=== PATIENT | female | born 1990 | race Caucasian/White ===

== ENCOUNTER 2017-07-11 17:14 | Inpatient (IN) | payer MEDICAID ==
[~2017-07-11] VITALS: Ht 160 cm; Wt 69.9 kg
[2017-07-11 17:25] VITALS: BP 114/62; PULSE 78; RESP 19
[2017-07-11 17:26] VITALS: Ht 160 cm; Wt 69.9 kg
[2017-07-11] MEDS ORDERED: PREN1TAB79 PO (17:26)
[2017-07-11] MEDS ORDERED: TERBUTALINE 1 ML ONE (17:35)
[2017-07-11] MEDS ORDERED: BETAMET NA PHOS/AC(6 MG/ML) 5ML INJ ONE (17:35)
[2017-07-11] MEDS ORDERED: BETAMET NA PHOS/AC(6 MG/ML) 5ML INJ IM ONE (18:00)
[2017-07-11] MEDS ORDERED: LACTATED RINGER'S 1,000 ML IV SCH ×2 (18:00→20:39)
[2017-07-11] MEDS ORDERED: TERBUTALINE 1 MG/ML INJ SC ONE (18:00)
[2017-07-11 19:19] LABS: BARBITURATES Negative (NEGATIVE); BENZODIAZEPINES Negative (NEGATIVE); CANNABINOIDS Negative (NEGATIVE); COCAINE Negative (NEGATIVE); OPIATES Negative (NEGATIVE)
[2017-07-11] MEDS ORDERED: TERBUTALINE 1 MG/ML INJ SC STA (20:39)
[2017-07-11] MEDS ORDERED: NIFEdipine 10 MG CAP ONE (20:47)
[2017-07-11] MEDS ORDERED: NIFEdipine 10 MG CAP PO ONE (21:00)
[2017-07-11 21:41] LABS: BASOPHILS % 0.2 % (0.0-2.0); HEMATOCRIT 34.4 % (37.0-47.0); HEMOGLOBIN 11.8 g/dl (12.0-16.0); LYMPHOCYTES # 1.4 10^3/ul (0.8-2.9); MEAN CORPUSCULAR HEMOGLOBIN 31.7 pg (29.0-33.0); MEAN CORPUSCULAR HGB CONC 34.3 g/dl (32.0-37.0); MEAN CORPUSCULAR VOLUME 92.5 fl (82.0-101.0); MEAN PLATELET VOLUME 9.7 fl (7.4-10.4); MONOCYTE # 0.3 10^3/ul (0.3-0.9); MONOCYTES % 2.6 % (0.0-11.0); NEUTROPHIL # 10.7 10^3/ul (1.6-7.5); NEUTROPHILS % 85.5 % (39.0-77.0); PLATELET COUNT 143 10^3/UL (140-415); RED BLOOD COUNT 3.72 10^6/ul (4.20-5.40); RED CELL DISTRIBUTION WIDTH 13.3 % (11.5-14.5); WHITE BLOOD COUNT 12.5 10^3/ul (4.8-10.8)
--- NOTE | 2017-07-11 22:23 | TRIAGE ---
OB Triage Datetime Report Generated by CPN: 07/11/2017 22:23 Datetime: 07/11/2017 22:09 Time of Arrival: 07/11/2017 20:45 EGA: 36.1 Arrived By: Ambulatory Arrived From: TRIAGE Datetime: 07/11/2017 22:03 Stage of : Antepartum Labor Evaluation Frequency: X1 Monitor Mode: External Duration (sec)2399: 50 Quality: Mild Resting Tone Reeder: Relaxed Heart Rate FHR Baseline Rate: 130 Monitor Mode: External US Variability: Moderate 6-25 bpm Accelerations: 15X15 Decelerations: None Category: Category I Pain Assessment Pain Scale: 0 Pain Presence: None/Denies Pain Type: N/A Datetime: 07/11/2017 21:07 Monitor Mode: External Monitor Mode: External US Datetime: 07/11/2017 20:57 Stage of : OB Triage Labor Evaluation Frequency: x6 Monitor Mode: External Duration (sec)2399: 60-80 Quality: Mild Resting Tone Reeder: Relaxed Heart Rate FHR Baseline Rate: 120 Monitor Mode: External US Variability: Moderate 6-25 bpm Accelerations: 15X15 Decelerations: None Category: Category I Pain Assessment Pain Scale: 0 Pain Presence: None/Denies Pain Type: N/A Datetime: 07/11/2017 20:42 Stage of : OB Triage Datetime: 07/11/2017 20:17 Vaginal Exam Dilatation (cms): 2.5 Effacement (%): 80 Station: -3 Exam By: M [place] Vaginal Bleeding: None Cervix, Consistency: Moderate Cervix, Position: Posterior Presentation 'A': Breech Datetime: 07/11/2017 20:00 Labor Evaluation Frequency: 5 Monitor Mode: External Duration (sec)2399: 10 Quality: Mild Resting Tone Reeder: Relaxed Heart Rate FHR Baseline Rate: 125 Monitor Mode: External US Variability: Moderate 6-25 bpm Accelerations: 15X15 Decelerations: None Category: Category I Pain Assessment Pain Scale: 0 Pain Presence: None/Denies Pain Type: N/A Datetime: 07/11/2017 18:59 Stage of : OB Triage Maternal Assessment Level of Consciousness: Fully Conscious DTR's/Clonus: DTRs 1+ Headache: Denies Breath Sounds, Left: Clear and Equal Breath Sounds, Right: Clear and Equal Nausea/Vomiting: Denies RUQ Epigastric Pain: Denies Labor Evaluation Frequency: X2 Monitor Mode: External Duration (sec)2399: 50-60 Quality: Mild Pattern: Normal: <= 5 Contractions in 10 Minutes Resting Tone Reeder: Relaxed Resting Tone IUP (mmHg): Heart Rate FHR Baseline Rate: 120 Monitor Mode: External US Variability: Moderate 6-25 bpm Accelerations: 15X15 Decelerations: None Category: Category I Pain Assessment Pain Scale: 0 Pain Goal: 0 Membrane Status: Intact Datetime: 07/11/2017 18:03 Stage of : OB Triage Maternal Assessment Level of Consciousness: Fully Conscious DTR's/Clonus: DTRs 1+ Headache: Denies Breath Sounds, Left: Clear and Equal Breath Sounds, Right: Clear and Equal Nausea/Vomiting: Denies RUQ Epigastric Pain: Denies Labor Evaluation Frequency: NONE Monitor Mode: External Resting Tone Reeder: Relaxed Heart Rate FHR Baseline Rate: 120 Monitor Mode: External US Variability: Moderate 6-25 bpm Accelerations: 15X15 Decelerations: None Category: Category I Pain Assessment Pain Scale: 0 Pain Goal: 0 Pain Assessment Comments: PT STATES NOT FEELING HER UC'S NO MORE Membrane Status: Intact Datetime: 07/11/2017 17:40 Stage of : OB Triage Maternal Assessment Level of Consciousness: Fully Conscious DTR's/Clonus: DTRs 1+ Headache: Denies Breath Sounds, Left: Clear and Equal Breath Sounds, Right: Clear and Equal Nausea/Vomiting: Denies RUQ Epigastric Pain: Denies Labor Evaluation Frequency: 2-4 Monitor Mode: External Duration (sec)2399: 40-80 Quality: Mild Pattern: Normal: <= 5 Contractions in 10 Minutes Resting Tone Reeder: Relaxed Heart Rate FHR Baseline Rate: 120 Monitor Mode: External US Variability: Moderate 6-25 bpm Accelerations: 15X15 Decelerations: None Category: Category I Pain Assessment Pain Scale: 3 Pain Presence: Intermittent Pain Type: Contraction Pain Location: Back Pain Goal: 3 Pain Relief Measures: Pain Medication Given Membrane Status: Intact Datetime: 07/11/2017 17:30 Maternal Assessment Level of Consciousness: Fully Conscious DTR's/Clonus: DTRs 1+ Headache: Denies Blurred Vision: No Respiratory Effort: Unlabored Breath Sounds, Left: Clear and Equal Breath Sounds, Right: Clear and Equal Nausea/Vomiting: Denies RUQ Epigastric Pain: Denies Facial Edema: None Labor Evaluation Frequency: 2-4 Monitor Mode: External Duration (sec)2399: 40-80 Quality: Mild Pattern: Normal: <= 5 Contractions in 10 Minutes Resting Tone Reeder: Relaxed Heart Rate FHR Baseline Rate: 120 Monitor Mode: External US Variability: Moderate 6-25 bpm Accelerations: 15X15 Decelerations: None Category: Category I Pain Assessment Pain Scale: 3 Pain Presence: Intermittent Pain Type: Contraction Pain Location: Back Pain Goal: 3 Pain Relief Measures: Pain Medication Given Membrane Status: Intact Datetime: 07/11/2017 17:28 Stage of : OB Triage Datetime: 07/11/2017 17:19 EGA: 36.1 Datetime: 07/11/2017 17:15 Vaginal Exam Dilatation (cms): 2.0 Effacement (%): 80 Station: -3 Exam By: VERONICA BOONE Vaginal Bleeding: None Cervix, Consistency: Soft Cervix, Position: Posterior Presentation 'A': Cephalic Datetime: 07/11/2017 17:09 Assessment Type: Triage Maternal Assessment Level of Consciousness: Fully Conscious DTR's/Clonus: DTRs 2+; No Clonus Headache: Denies Blurred Vision: No Respiratory Effort: Unlabored; Regular Rhythm; Equal Expansion Breath Sounds, Left: Clear and Equal Breath Sounds, Right: Clear and Equal Nausea/Vomiting: Denies RUQ Epigastric Pain: Denies Lower Extremities Edema: None Degree: None Upper Extremities Edema: None Degree: None Facial Edema: None Fall Risk Assessment History of Falling: (0) No Secondary Diagnosis: (0) No Ambulatory Aid: (0) Bedrest/Nurse Assist IV Therapy: (0) No Gait: (0) Normal/Bedrest/Immobile Mental Status: (0) Oriented to Own Ability Fall Score: 0 Fall Risk Score Definition: No Risk: No action required Datetime: 07/11/2017 16:58 Time of Arrival: 07/11/2017 16:58 Arrived By: Wheelchair Arrived From: Home Chief Complaint: PT CAME IN C/O UC'S SINCE YESTERDAY AT 0400. DENIES ANY BLEEDIN OR LEAKIN OF FLUI D AT THIS TIME AND STATES + MOVEMENT Movement: Present Contractions: Regular Time Contractions Began: 07/10/2017 04:00 Contractions: 5-10 MIN Rupture of Membranes: Denies Vaginal Discharge: Denies Recent Sexual Intercouse: Denies Abdominal Trauma: Not Applicable Additional Patient Complaints: NONE Time Provider Notified: 07/11/2017 17:28 Provider Notified: DENZEL Initial Plan: MONITOR AND VE IV HYDRATION, TERBUTALINE, ADENIKE SCREEN AND BETAMETOSONE
[2017-07-11 22:25] VITALS: BP 108/57; RESP 17
[2017-07-12] MEDS ORDERED: NIFEdipine 10 MG CAP PO SCH (02:00)
[2017-07-12 03:30] LABS: ADD UMIC NO; UR ASCORBIC ACID 20 mg/dL (NEGATIVE); UR BILIRUBIN (Dip) NEGATIVE (NEGATIVE); UR BLOOD (Dip) NEGATIVE (NEGATIVE); UR CLARITY CLEAR (CLEAR); UR COLOR YELLOW (YELLOW); UR GLUCOSE (Dip) NEGATIVE (NEGATIVE); UR KETONES (Dip) 1+ mg/dL (NEGATIVE); UR LEUKOCYTE ESTERASE (Dip) NEGATIVE Leu/ul (NEGATIVE); UR NITRITE (Dip) NEGATIVE (NEGATIVE); UR SPECIFIC GRAVITY (Dip) 1.015 (1.003-1.030); UR TOTAL PROTEIN (Dip) NEGATIVE (NEGATIVE); UR UROBILINOGEN (Dip) NEGATIVE (NEGATIVE)
[2017-07-12] MEDS: LACTATED RINGER'S 1,000 ML IV SCH ×2 (03:53→11:35)
[2017-07-12 06:40] LABS: BASOPHILS % 0.2 % (0.0-2.0); HEMATOCRIT 32.2 % (37.0-47.0); HEMOGLOBIN 11.1 g/dl (12.0-16.0); LYMPHOCYTES # 1.3 10^3/ul (0.8-2.9); LYMPHOCYTES % 11.3 % (15.0-51.0); MEAN CORPUSCULAR HEMOGLOBIN 31.9 pg (29.0-33.0); MEAN CORPUSCULAR HGB CONC 34.5 g/dl (32.0-37.0); MEAN CORPUSCULAR VOLUME 92.5 fl (82.0-101.0); MEAN PLATELET VOLUME 9.7 fl (7.4-10.4); MONOCYTE # 0.6 10^3/ul (0.3-0.9); MONOCYTES % 4.7 % (0.0-11.0); NEUTROPHIL # 9.7 10^3/ul (1.6-7.5); NEUTROPHILS % 82.7 % (39.0-77.0); PLATELET COUNT 157 10^3/UL (140-415); RED BLOOD COUNT 3.48 10^6/ul (4.20-5.40); RED CELL DISTRIBUTION WIDTH 13.2 % (11.5-14.5); WHITE BLOOD COUNT 11.7 10^3/ul (4.8-10.8)
[2017-07-12] MEDS: NIFEdipine 10 MG CAP PO SCH ×3 (08:15→18:00)
[2017-07-12] MEDS ORDERED: PRENATAL VITAMIN PO SCH ×2 (09:00)
[2017-07-12] MEDS ORDERED: TERBUTALINE 1 ML ONE (14:18)
[2017-07-12] MEDS ORDERED: BETAMET NA PHOS/AC(6 MG/ML) 5ML INJ IM SCH (14:30)
[2017-07-12] MEDS ORDERED: TERBUTALINE 1 MG/ML INJ SC ONE (14:30)
--- NOTE | 2017-07-12 17:49 | HP ---
Date/Time of Note Date/Time of Note Late entry DATE: 07/11/17 OB - History Hx of Present Free Text/Dictation 27-year-old female 2 para 1 at 36 weeks and 2 days gestation admitted complaining of onset started night prior to admission Denies vaginal bleeding and ruptured membrane Last Menstrual Period: Oct 31, 2016 Estimated Due Date: Aug 07, 2017 : 2 Para: 1 Care: Good Care Ultrasounds: Normal mid trimester US Obstetrical Complications: None Medical Complications: None Past Family/Social History * Past Medical, Surgical, Family and Obstetric Histories reviewed from chart. Blood Type: O+ Rubella: immune RPR/VDRL: Negative GBS Status: Negative HBsAG: Negative OB Admission Exam Vital Signs Vital Signs Vital Signs Date Time Temp Pulse Resp B/P Pulse Ox O2 Delivery O2 Flow Rate FiO2 07/11/17 22:25 98.2 17 108/57 Room Air 07/11/17 17:25 78 99 Physical Exam Cervical Dilatation: 2cm Effacement: 50% Station: -3 Membranes: Intact Heart Rate: 120's Accelerations: Accelerations Present Decelerations: No Decelerations Varibility: Marked Contractions on Admission: < 5 Minutes Apart Date/Time Contractions Began: June 10, 2017 2200 p.m. Frequency of Contractions: Every 5 6 minutes Duration: Over 60 seconds Intensity: Moderate Last 72 hours Lab Results CBC & BMP 07/11/17 21:32 07/12/17 06:17 OB Assessment/Plan Reason for admission: labor Other Assessment: 36 weeks and 2 days gestation labor Other plan: Provide steroids Subcutaneous terbutaline on soft upper lysis with calcium channel blockers Continue to observe CHRISTY TORRES MD Jul 12, 2017 17:49
--- NOTE | 2017-07-12 17:51 | DS ---
Date/Time of Note Date/Time of Note We will DC home after receiving the second dose of steroid and obtaining biophysical profile Patient was sent home on bed and pelvic rest until delivery We will follow patient in clinic in 2 days DATE: 07/12/17 TIME: 17:49 Obstetrical Discharge Record Final Diagnosis Final Diagnosis: not delivered Other Final Diagnosis labor at 36 weeks and 2 days Complications Labor Tocolytics: Terbutaline, Other (Nifedipine) Condition on Discharge Physical Assessment Voiding: Yes Bowel Movement: Yes Breast: Soft, non-tender, Filling Fundus: Other () Abdomen and Incision: Gravid Final height is 35 Cervix is 50% on 2 cm: Unchanged since admission(examined by myself) Episiotomy: Not applicable Calf Tenderness: No Patient Condition: Good CHRISTY TORRES MD Jul 12, 2017 17:51
--- NOTE | 2017-07-12 17:53 | PD.PPDC ---
[employer] Discharge Instruction Provider Information Physician Information 27-year-old female 2 para 1 at 36 weeks admitted in labor Had management contractions with combination of terbutaline and nifedipine We will stop the medication in 3 4 days Follow-up in clinic to 2 days Bed on pelvic rest until delivery Diagnosis Final Diagnosis: labor Condition Patient Condition: Good Diet Diet: Resume Regular Diet Activity/Restrictions Activity: Bedrest May Shower Restrictions: Nothing in the Vagina Follow-up Follow-up with Physician: 2, Day/Days (In clinic for staple removal) Return to clinic for Comment: Pelvic rest and no heart activity until delivery Continue p.o. hydration and CHRISTY TORRES MD Jul 12, 2017 17:53
[2017-07-12] MEDS ORDERED: NIFEdipine 10 MG CAP PO ONE (18:00)
--- NOTE | 2017-07-12 18:22 | RADRPT ---
PROCEDURE: US OB. CLINICAL INDICATION: Contractions TECHNIQUE: Multiple sonographic images of the pelvis were obtained. The images were reviewed on a PACS workstation. COMPARISON: No prior studies are available for comparison. FINDINGS: There is a single live intrauterine . cardiac activity is identified at a rate of 12 0 beats per minute. presentation is cephalic. Placenta is fundal grade II. Biophysical profile score is as follows: Breathing 2 Movements 2 Tone 2 Fluid volume 2 Amniotic fluid index = 18.2 cm Total biophysical profile score = 8/8 IMPRESSION: Biophysical profile score = 8/8 RPTAT: HH .Jam Monae MD, MD Date Time Electronically viewed and signed by .Jam Monae MD, on 07/12/2017 18:22 .W/
== END 2017-07-12 18:59 | disposition home or self-care (01) | DRG 780 ==
LOC: L-D 17:14 → OBT 17:14 → L-D 20:45
PROVIDERS: ADMIT Obstetrics & Gynecology; ATTEND Obstetrics & Gynecology
DX: O47.03 False labor before 37 completed weeks of gestation, third trimester (principal); Z3A.36 36 weeks gestation of pregnancy
CPT/HCPCS: 36415; 76818; 80307; 81003; 85025; 86900; 86901; 87340; 96360; 96361; 96372; G0463; J0702; J3105; J7120

== ENCOUNTER 2017-07-26 22:45 | Inpatient (IN) | END 2017-07-29 16:15 | disposition home or self-care (01) | DRG 775 ==